=== PATIENT | male | born 1980 | race Caucasian/White ===

== ENCOUNTER 2023-06-15 18:47 | Emergency (ER) | payer OTHER, BC, SELFPAY ==
[2023-06-15] VITALS (20 sets, daily range): BP systolic 116–132; BP diastolic 77–96; PULSE 50–63; RESP 18; TEMP 36.2; O2SAT 95–99; BMI 28.7
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
[2023-06-15] MEDS: MORPHINE 4 MG/ML INJ IVP ×2 (19:16→20:12)
[2023-06-15 19:23] LABS: Basophils Absolute Auto 0.02 K/uL (0.00-0.30); Basophils Percent Auto 0.3 % (0.0-3.0); Eosinophils Absolute Auto 0.18 K/uL (0.00-0.50); Eosinophils Percent Auto 2.3 % (0.0-7.0); Hematocrit 45.5 % (37.0-53.0); Hemoglobin* 14.7 gm/dL (13.5-17.5); Immature Granulocytes Abs Auto 0.01 K/uL (0.00-0.30); Immature Granulocytes Pct Auto 0.1 %; Lymphocytes Absolute Auto 1.89 K/uL (0.90-2.90); Lymphocytes Percent Auto 23.8 % (20-44); Mean Corpuscular HGB Conc 32 gm/dL (32-36); Mean Corpuscular Hemoglobin 28 pg (26-34); Mean Corpuscular Volume 86 fL (80-100); Monocytes Percent Auto 6.9 % (0.0-11.0); Neutrophils Absolute Auto 5.28 K/uL (1.7-7.0); Neutrophils Percent Auto 66.6 % (42.0-72.0); Platelet Count* 279 K/uL (140-440); RDW Coefficient of Variation % 12.7 % (11.5-15.5); White Blood Count* 7.93 K/uL (4.50-11.00)
[2023-06-15 19:24] LABS: Slide Review Reflex No
[2023-06-15 19:33] LABS: Chloride* 108 mmol/L (96-114); Sodium* 138 mmol/L (135-149)
[2023-06-15 19:34] LABS: Potassium* 3.7 mmol/L (3.6-5.1)
[2023-06-15 19:36] LABS: Creatinine* 1.2 mg/dL (0.5-1.5); Est. Creatinine Clearance* 95.84; Estimated Glomerular Filt Rate 77 ml/min
[2023-06-15 19:37] LABS: Anion Gap 3 mEq/L (7-15); Blood Urea Nitrogen* 15 mg/dL (5-24); Calcium* 8.9 mg/dL (8.4-10.6); Carbon Dioxide* 27 mmol/L (20-32); Glucose* 93 mg/dL (60-115)
[2023-06-15] MEDS: CYCLOBENZAPRINE HCL 10 MG TABLET PO (20:11)
== END 2023-06-15 20:56 | disposition home or self-care (01) ==
PROVIDERS: Emergency Provider Student in an Organized Health Care Education/Training Program; PCP Physician Assistant Medical
DX: S13.4XXA Sprain of ligaments of cervical spine, initial encounter (principal); V43.52XA Car driver injured in collision with other type car in traffic accident, initial encounter
CPT/HCPCS: 36415; 70450; 71260; 72125; 74177; 80048; 84484; 85025; 93005; 96374; 96376; 99283; 99284; 99291; A9270; J2270; Q9967

== ENCOUNTER 2023-06-23 15:06 | Outpatient (CLI) | payer OTHER, SELFPAY ==
--- NOTE | 2023-06-23 15:30 | MR_ITS ---
[facility] [address] [facility] [address] Phone:?[phone] Fax:?[phone] Referring Physician Information: Jonathan Markham [address] [facility] [address] Phone:?[phone] Fax:?[phone] Patient:Dany Rucker D.O.B:?1980 Sex:?Male Phone:?[phone] [facility] MRN:?[id number] Exam Date:?06/23/2023 EXAM: MRI of the LEFT SHOULDER, without contrast CLINICAL INFORMATION: Male, 43 years old, with left shoulder and spine pain INDICATION: Rule out rotator cuff tear PRIOR SURGERY: None reported. PLAIN FILMS: None available. COMPARISONS: No prior MRIs available. TECHNICAL INFORMATION: Using a 1.5T MR scanner and a localizing surface coil: Coronals: PD, T2FS Sagittals: PDFS, T2 Axials: PD, PDFS SEDATION: None CONTRAST: None FINDINGS: Bones: Proximal humerus: No fracture or marrow edema/pathology. No humeral Hill-Sachs or reverse Hill-Sachs lesion/impaction or contusion. Glenoid: No fracture or marrow edema/pathology. No osseous Bankart lesion. Rotator cuff and muscles/tendons: Supraspinatus: Mild supraspinatus tendinosis with bursal sided fraying anteriorly, without defined rotator cuff tear or muscle belly atrophy. Infraspinatus: Mild infraspinatus tendinosis with small region of low-grade interstitial splitting of the mid distal tendon measuring 4 mm in AP dimension (coronal series 4 image 16). No high-grade tendon tearing or muscle belly atrophy. Teres minor: No tendinopathy, tear or atrophy. Subscapularis: Mild subscapularis thickening and tendinosis without well-defined rotator cuff tear. Deltoid: No strain or atrophy. Coracoacromial arch: Acromion morphology: The acromion has type II morphology. No discrete subacromial osseous spur or os acromiale. Acromiohumeral space: The acromiohumeral space is within normal limits. Coracohumeral space: The coracohumeral space is within normal limits. Acromioclavicular joint: Joint: No acute injury, arthropathy, or inferior hypertrophy. Ligaments: Coracoclavicular ligaments are intact. Bursae: Subacromial-subdeltoid: No convincing subacromial bursal thickening/bursitis. Subcoracoid: No convincing subcoracoid bursal thickening/bursitis. Biceps tendon: The long head of the biceps tendon is present within the bicipital groove. The intra-articular and extra-articular segments are intact without tendinosis, tenosynovitis, or displacement. Glenohumeral joint: Effusion/cyst: No significant glenohumeral joint effusion. Articular cartilage: Humeral head: No osteochondral abnormalities. Glenoid: No osteochondral abnormalities. Loose bodies: No discrete intra-articular body within the joint. Labrum:?No discrete SLAP tear. No other definite evidence for labral tear. No paralabral ganglion cyst is identified. Inferior glenohumeral ligament/axillary pouch:?There is mild thickening of the inferior glenohumeral ligament and edema/infiltration of the soft tissues in the rotator interval. IMPRESSION: 1. Mild infraspinatus tendinosis with small region of low-grade interstitial splitting of the mid distal tendon, without high-grade tendon tearing. 2. Mild supraspinatus and subscapularis tendinosis without tear. 3. No labral tear or paralabral cyst. 4. No tendinopathy, tear, or displacement of the long head of the biceps tendon. 5. Soft tissue infiltration/edema in the rotator interval as well as mild thickening of the inferior glenohumeral ligament, and may be seen with adhesive capsulitis in the appropriate clinical setting. 6. No osteochondral defect. KME Electronically signed on 06/26/2023 12:01:00 PM by Tayler Carlos M.D.
== END 2023-06-23 15:07 | disposition home or self-care (01) ==
LOC: MRI 15:08
PROVIDERS: PCP Emergency Medicine; Visit Provider Family Medicine
DX: M25.512 Pain in left shoulder (principal); H49.22 Sixth [abducent] nerve palsy, left eye
CPT/HCPCS: 73221